=== PATIENT | female | born 1990 | race African-American/Black ===

== ENCOUNTER 2016-07-14 01:06 | Emergency (ER) | payer MEDICAID, OTHER ==
[~2016-07-14] VITALS: Ht 157.5 cm; Wt 72.6 kg
[2016-07-14] MEDS ORDERED: LORazepam 0.5 MG TAB PO ONE (01:30)
[2016-07-14] MEDS ORDERED: ONDANSETRON ODT 4 MG TAB PO ONE (01:30)
[2016-07-14 01:43] LABS: Urine Bilirubin Negative (Negative); Urine Blood TRACE /uL (Negative); Urine Color Yellow (Yellow); Urine Glucose Normal (Normal); Urine Ketone Negative (Negative); Urine Mucus FEW (None Seen); Urine Nitrite Negative (Negative); Urine RBC 2 /hpf (0 - 4); Urine Squamous Epithelial Cell FEW /hpf (<5); Urine Urobilinogen Normal (Negative); Urine pH 6.5 (5.0-8.0)
[2016-07-14 01:49] LABS: Basophils # (auto) 0 uL; Basophils % (auto) 0.3 % (0.0-2.0); Eosinophils # (auto) 0.1 uL; Eosinophils % (auto) 0.7 % (0.0-7.0); Hematocrit 39.1 % (36.0-46.0); Hemoglobin 13.2 g/dL (12.2-16.2); Lymphocytes # (auto) 1.5 uL; Lymphocytes % (auto) 12.5 % (10.0-50.0); Mean Corpuscular Hemoglobin 30.4 pg (28.0-32.0); Mean Corpuscular Hgb Conc. 33.8 g/dL (32.0-36.0); Mean Corpuscular Volume 89.9 fL (80.0-100.0); Mean Platelet Volume 9.3 fL (7.4-10.4); Monocytes # (auto) 0.5 uL; Monocytes % (auto) 3.8 % (0.0-12.0); Neutrophils # (auto) 10.1 uL; Neutrophils % (auto) 82.7 % (37.0-80.0); Platelet Count (auto) 283 10^3/uL (140-450); Red Cell Distribution Width 13.5 % (11.6-16.0); SUSPECT VIEW TRANSMISSION; White Blood Cell 12.2 10^3/uL (4.4-10.8)
[2016-07-14 01:58] LABS: INR 0.91 (0.9-1.15); Partial Thromboplastin Time 24.3 sec (22.64-33.71); Prothrombin Time 9.9 sec (9.37-12.3)
[2016-07-14 02:06] LABS: Albumin 3.6 g/dL (3.4-5.0); BUN/Creatinine Ratio 13.8; Calcium 9.3 mg/dL (8.5-10.1)
[2016-07-14 02:09] LABS: Bilirubin, Total 0.3 mg/dL (0.2-1.0); Total Protein 8.4 g/dL (6.4-8.2)
[2016-07-14 02:25] VITALS: BP 117/69
[2016-07-14] MEDS ORDERED: SODIUM CHLORIDE 0.9% 1,000 ML IV ONE (03:00)
[2016-07-14] MEDS ORDERED: MORPHINE SULF INJ 2 MG/ML SYRINGE 1ML IV ONE (03:15)
[2016-07-14] MEDS ORDERED: NITROFURANTOIN (MONO) 100 mg CAP PO ONE (03:30)
[2016-07-14] MEDS ORDERED: ONDANSETRON HCL 4 MG/2 ML VIAL IV ONE (03:45)
== END 2016-07-14 04:00 | disposition home or self-care (01) ==
LOC: ER 01:06
DX: N39.0 Urinary tract infection, site not specified (principal); Z88.6 Allergy status to analgesic agent; Z91.040 Latex allergy status
CPT/HCPCS: 36415; 80053; 81001; 81025; 82150; 83690; 85025; 85610; 85730; 96361; 96374; 96375; 99284; J2270; J2405; J7030; Q0162

== ENCOUNTER 2019-02-13 04:04 | Emergency (ER) | payer MEDICAID ==
[~2019-02-13] VITALS: Ht 157.5 cm; Wt 79.4 kg
[2019-02-13 05:06] LABS: Urine Bacteria FEW /hpf (None Seen); Urine Blood Normal /uL (Negative); Urine Mucus FEW (None Seen); Urine Specific Gravity 1.017 (1.001-1.035)
[2019-02-13 07:46] LABS: Basophils # (auto) 0 uL; Basophils % (auto) 0.2 % (0.0-2.0); Eosinophils # (auto) 0.1 uL; Eosinophils % (auto) 1.1 % (0.0-7.0); Hematocrit 39.5 % (36.0-46.0); Hemoglobin 13.6 g/dL (12.2-16.2); Lymphocytes # (auto) 2.5 uL; Lymphocytes % (auto) 25.8 % (10.0-50.0); Mean Corpuscular Hemoglobin 31.5 pg (28.0-32.0); Mean Corpuscular Hgb Conc. 34.4 g/dL (32.0-36.0); Mean Corpuscular Volume 91.7 fL (80.0-100.0); Monocytes # (auto) 0.6 uL; Monocytes % (auto) 6.1 % (0.0-12.0); Neutrophils # (auto) 6.6 uL; Neutrophils % (auto) 66.8 % (37.0-80.0); Nucleated Red Blood Cells % 0.1 %; Platelet Count (auto) 391 10^3/uL (140-450); Red Blood Cells 4.31 10^6/uL (4.0-5.20); Red Cell Distribution Width 13.7 % (11.8-14.3); White Blood Cell 9.9 10^3/uL (4.4-10.8)
[2019-02-13 07:55] LABS: Albumin 4.1 g/dL (3.4-5.0); Calcium 10.6 mg/dL (8.5-10.1)
[2019-02-13 07:57] LABS: BUN/Creatinine Ratio 12.2
[2019-02-13 08:11] LABS: Bilirubin, Total 0.2 mg/dL (0.2-1.0); Total Protein 8.8 g/dL (6.4-8.2)
[2019-02-13] MEDS ORDERED: SODIUM CHLORIDE 0.9% 1,000 ML IV ONE (08:49)
[2019-02-13] MEDS ORDERED: cefTRIAXone 1GM/50ML D5W 50 ML IV ONE (09:30)
[2019-02-13 11:10] VITALS: BP 135/92
== END 2019-02-13 11:16 | disposition home or self-care (01) ==
LOC: ER 04:04
DX: N39.0 Urinary tract infection, site not specified (principal); N20.0 Calculus of kidney
CPT/HCPCS: 36415; 74176; 80053; 81001; 81025; 85025; 96365; 99284; J0696

== ENCOUNTER 2023-08-19 12:09 | Inpatient (IN) | payer MEDICAID ==
[~2023-08-19] VITALS: Ht 157.5 cm; Wt 65.0 kg
[2023-08-19] MEDS: MORPHINE SULFATE 4 MG/ML SYR/VIAL IV ONE (12:42)
[2023-08-19] MEDS: ONDANSETRON HCL 4 MG/2 ML VIAL IV ONE (12:52)
[2023-08-19] MEDS: KETOROLAC TROMETH 30 MG/ML 1ML VIAL IV ONE (12:52)
[2023-08-19 12:53] VITALS: PULSE 122; RESP 24; O2SAT 98
[2023-08-19 13:09] LABS: Basophils # (auto) 0 10 ^3/uL (0-0.2); Basophils % (auto) 0.3 % (0.0-2.0); Eosinophils # (auto) 0 10 ^3/uL (0-0.8); Eosinophils % (auto) 0.7 % (0.0-7.0); Hematocrit 33.4 % (36.0-46.0); Hemoglobin 11.2 g/dL (12.2-16.2); Lymphocytes # (auto) 1.7 10 ^3/uL (0.4-5.4); Lymphocytes % (auto) 23.4 % (10.0-50.0); Mean Corpuscular Hemoglobin 30.4 pg (28.0-32.0); Mean Corpuscular Hgb Conc. 33.5 g/dL (32.0-36.0); Mean Corpuscular Volume 90.9 fL (80.0-100.0); Monocytes # (auto) 0.4 10 ^3/uL (0-1.3); Neutrophils # (auto) 4.9 10 ^3/uL (1.6-8.6); Neutrophils % (auto) 69.6 % (37.0-80.0); Red Blood Cells 3.68 10^6/uL (4.0-5.20); Red Cell Distribution Width 15.2 % (11.8-14.3); White Blood Cell 7.1 10^3/uL (4.4-10.8)
[2023-08-19] MEDS ORDERED: LORazepam 2MG/ML-1ML VIAL IV ONE (13:15)
[2023-08-19 13:25] LABS: Alanine Aminotransferase 13 U/L (7-40); Albumin 4.2 g/dL (3.2-4.8); Alkaline Phosphatase 63 U/L (46-116); Anion Gap 5 (5-15); Aspartate Aminotransferase 14 U/L (13-40); BUN/Creatinine Ratio 6.7 (10.0-20.0); Bilirubin, Total 0.3 mg/dL (0.2-1.0); Blood Urea Nitrogen 5 mg/dL (9-23); Calcium 9.4 mg/dL (8.7-10.4); Carbon Dioxide 22 mmol/L (20-30); Chloride 109 mmol/L (98-107); Glucose 93 mg/dL (74-106); Potassium 3.5 mmol/L (3.5-5.1); Sodium 136 mmol/L (136-145)
[2023-08-19 13:26] LABS: Total Protein 7.1 g/dL (5.7-8.2)
[2023-08-19] MEDS: SODIUM CHLORIDE 0.9% 1,000 ML IV ONE (13:26)
[2023-08-19 15:10] LABS: Urine Bacteria FEW /hpf (None Seen); Urine Blood 2+ /uL (Negative); Urine Clarity Clear (Clear); Urine Color Colorless (Yellow); Urine Protein, UAD Negative (Negative); Urine Specific Gravity 1.008 (1.001-1.035); Urine Urobilinogen Normal (Negative); Urine WBC 2 /hpf (0 - 5); Urine pH 7.5 (5.0-9.0)
[2023-08-19] MEDS: MAGNESIUM SULFATE 1GM/100ML 100 ML IV SCH (15:29)
[2023-08-19] MEDS ORDERED: HYDROmorphone HCL 2 MG/ML VL/or syr IV ONE (15:30)
[2023-08-19] MEDS ORDERED: MORPHINE SULFATE INJ 2 MG/ml SYRG IV PRN (16:45)
[2023-08-19] MEDS ORDERED: HYDROmorphone HCL 2 MG/ML VL/or syr IV PRN (16:45)
[2023-08-19] MEDS: cefTRIAXone 1GM/50ML D5W 50 ML IV ONE (16:45)
[2023-08-19] MEDS ORDERED: NITROGLYCERIN 0.4 MG SL TAB SL PRN (16:45)
[2023-08-19] MEDS ORDERED: ONDANSETRON HCL 4 MG/2 ML VIAL IV PRN (16:45)
[2023-08-19] MEDS: SODIUM CHLORIDE 0.9% 1,000 ML IV SCH (16:45)
[2023-08-19] MEDS ORDERED: DOCUSATE SOD 100 MG CAP PO PRN (16:45)
[2023-08-19] MEDS ORDERED: TAMSULOSIN HYDROCHLORIDE 0.4 MG CAP PO SCH (18:00)
[2023-08-19 18:06] VITALS: BP 125/83; PULSE 92; RESP 17; TEMP 98.9; O2SAT 98
[2023-08-19] MEDS: TAMSULOSIN HYDROCHLORIDE 0.4 MG CAP PO ONE (18:26)
[2023-08-19 18:49] VITALS: PULSE 92; RESP 17; O2SAT 98
[2023-08-19 19:18] VITALS: BP 125/83; PULSE 92; RESP 17; TEMP 98.9; O2SAT 98
[2023-08-19] MEDS ORDERED: [UNRECOGNIZED DRUG - CODE] OR (19:31)
[2023-08-19] MEDS ORDERED: QUET200T45 PO (19:31)
[2023-08-19] MEDS ORDERED: HYDR50TA69 PO (19:31)
[2023-08-19] MEDS ORDERED: HYDR-4924 PO (19:31)
[2023-08-19 19:45] VITALS: PULSE 92; RESP 17; O2SAT 98
[2023-08-20] MEDS ORDERED: cefTRIAXone 1GM/50ML D5W 50 ML IV SCH (09:00)
[2023-08-20] MEDS ORDERED: TAMSULOSIN HYDROCHLORIDE 0.4 MG CAP PO SCH (18:00)
== END 2023-08-19 20:15 | disposition left against medical advice (07) | DRG 463 ==
LOC: EDBD 12:09 → ER 12:09 → OVERFLOW 16:45 → WEST WING 17:51
PROVIDERS: ADMIT Nurse Practitioner Family; ATTEND Nurse Practitioner Family
DX: N10 Acute pyelonephritis (principal); D64.9 Anemia, unspecified; N20.0 Calculus of kidney; F32.A Depression, unspecified; K42.9 Umbilical hernia without obstruction or gangrene; Z53.29 Procedure and treatment not carried out because of patient's decision for other reasons; F41.9 Anxiety disorder, unspecified; Z88.8 Allergy status to other drugs, medicaments and biological substances; Z79.899 Other long term (current) drug therapy; Z88.6 Allergy status to analgesic agent; Z91.040 Latex allergy status; Z87.442 Personal history of urinary calculi
CPT/HCPCS: 36415; 74176; 80053; 81001; 84702; 85025; G0378; J1885; J2405